=== PATIENT | female | born 1940 | race Caucasian/White ===

== ENCOUNTER → 2017-09-01 | Outpatient (CLI) | payer OTHER | LOC: BMCIMAGING 13:00 | PROVIDERS: ATTEND Emergency Medicine | DX: M79.662 Pain in left lower leg (principal) ==

== ENCOUNTER 2017-09-03 08:39 | Emergency (ER) | payer OTHER ==
[2017-09-03 08:47] VITALS: BP 119/68; PULSE 73; RESP 18; TEMP 98.4; O2SAT 95
--- NOTE | 2017-09-03 09:18 | EDPHY ---
H & P Time Seen by Provider: 09/03/17 08:52 HPI/ROS: CHIEF COMPLAINT: Left ankle pain HISTORY OF PRESENT ILLNESS: 68 a woman has history of osteoarthritis presents with pain in her left ankle. She has had left ankle pain for 4 years and then saw her bar tacker about ex weeks ago and was given a brace which helped her. For the last 4 days has had pain radiating from her proximal foot up to the mid calf which feels different than her typical ankle pain and is worse brace. She also developed a rash on the side of her wood but does not remember scratching herself injuring herself. REVIEW OF SYSTEMS: No chest pain or shortness of breath or fevers PAST MEDICAL HISTORY: Right total arthroplasty, hypertension, ulcer disease, osteoarthritis. Previous treated 01/17/2014 personally reviewed Social history: Here with her daughter General Appearance: Alert and conversant, cooperative. Normal range of motion of the left knee ankle and foot. No bony tenderness on the tibia fibula or malleolus or the foot. Compartments are soft and normal motor sensory and capillary refill. No lymphangitis or fluctuance or clinical evidence cellulitis or redness. They are 4 vesicular lesions on the lateral mid wood, and 1 or 2 on her ankle medial to the lateral malleolus. Emergency Department course/MDM: Possible shingles. She is a bit hyperesthetic there. I think that septic joint or fracture or compartment syndrome or cellulitis are all unlikely. Treatment with antivirals and steroids discussed and consented. She is a pain medication prescription from her visit 2 days ago at urgent care when she had a negative ultrasound, she is encouraged to fill it. Negative left ankle x-ray personally interpreted. Smoking Status: Never smoked Constitutional: Initial Vital Signs Temperature (C) 36.9 C 09/03/17 08:40 Heart Rate 73 09/03/17 08:40 Respiratory Rate 18 09/03/17 08:40 Blood Pressure 119/68 09/03/17 08:40 O2 Sat (%) 95 09/03/17 08:40 O2 Delivery Mode Room Air Allergies/Adverse Reactions: morphine Allergy (Unknown, Unverified 09/03/17 08:47) Home Medications: Medication Instructions Recorded Aspirin [Aspirin 81mg (*)] 81 mg PO DAILY 01/18/14 Diltiazem HCl [Diltiazem 12Hr ER] 60 mg PO DAILY 01/18/14 Losartan/Hydrochlorothiazide 1 each PO DAILY 01/18/14 [Losartan-Hctz 50-12.5 mg Tab] amLODIPine BESYLATE [Norvasc 5 mg 5 mg PO HS 01/18/14 (*)] Aspirin EC [Aspirin EC 81 mg (*)] 81 mg PO DAILY 09/03/17 Atorvastatin Calcium [Lipitor 40 40 mg PO 09/03/17 mg (*)] Famciclovir [Famvir 250 MG (*)] 500 mg PO TID 7 Days tab 09/03/17 Memantine HCl [Namenda 5 mg (*)] 5 mg PO BID 09/03/17 predniSONE 10 mg PO AD #15 tab 09/03/17 MDM/Departure - MDM Imaging Results: Imaging Impressions Ankle X-Ray 09/03/17 09:13 Impression: Negative for fracture. - Depart Disposition: Home, Routine, Self-Care Clinical Impression: Left ankle pain Qualifiers: Chronicity: acute Qualified Code(s): M25.572 - Pain in left ankle and joints of left foot Shingles Qualifiers: Herpes zoster complications: without complications Qualified Code(s): B02.9 - Zoster without complications Condition: Good Instructions: Shingles (ED) Additional Instructions: Keep the area covered where there is a rash until it resolves. You need to avoid being around anyone with a compromised immune system or who is until the rash is gone. Prescriptions: Famciclovir [Famvir 250 MG (*)] 500 mg PO TID 7 Days tab predniSONE 10 mg PO AD #15 tab Referrals: Shelia Manriquez MD [Medical Doctor] - As per Instructions
== END 2017-09-03 10:00 | disposition home or self-care (01) ==
DX: M25.572 Pain in left ankle and joints of left foot (principal); B02.9 Zoster without complications; I10 Essential (primary) hypertension; Z79.82 Long term (current) use of aspirin

== ENCOUNTER 2018-06-30 21:08 | Observation (INO) | payer OTHER ==
--- NOTE | 2018-06-30 21:42 | EDPHY ---
H & P Stated Complaint: sz Time Seen by Provider: 06/30/18 21:52 HPI/ROS: CHIEF COMPLAINT: Seizure HISTORY OF PRESENT ILLNESS: The patient is a 77 y/o female with dementia and history of recent spinal fusion one month ago who arrives with her family members for evaluation after a witnessed seizure at home tonight. She is currently confused and says, "I don't know what you're all talking about" when I ask her who her family members are at the bedside. Son reports this is not baseline and that her dementia has been worse than usual all day in terms of lack of focus and confusion. History comes primarily from her son and daughter at bedside. She has a remote history of epilepsy, which she stopped taking medication for in the and has had no seizures since. She had an L4/L5 fusion on 05/30/18 and has been recovering well. Her left-sided sciatica improved after the surgery, but she has been complaining of right leg pain daily , which her son reports is a longstanding issue. She is currently living with her son through recovery and tonight after dinner he was upstairs and "heard this high-pitched scream and it went on for 10-15 seconds." He ran downstairs to find her sitting in a chair "stiff as a board" and then describes tonic- clonic seizure activity. She currently complains of right leg pain, but otherwise denies complaints. She and her family deny urinary symptoms. She is prescribed tramadol and gabapentin for pain. REVIEW OF SYSTEMS: A ten system review of systems was performed and is negative with the exception of the items mentioned in the HPI. Past medical history: Prior diagnosis of epilepsy stopped medications in ; dementia; hypertension; depression; neuropathy; hearing loss Past surgical history: L4/L5 spinal fusion by Dr. Malave; right knee replacement 10 years ago Family history: Noncontributory Social history: Son at bedside lives with the patient. Lives in [place]. Retired. General Appearance: Alert. Vital signs reviewed. Eyes: Pupils equal and round, no conjunctival injection, no discharge. Anicteric. ENT, Mouth: Mucous membranes are moist, no oropharyngeal erythema or edema. No tongue injury. Neck: No lymphadenopathy, supple. Respiratory: Lungs are clear to auscultation; no wheezes, rales, or rhonchi. Cardiovascular: Regular rate and rhythm; no murmur, rub, or gallop. Gastrointestinal: Abdomen is soft and nontender, no masses or organomegaly. Skin: Warm and dry, no rashes on exposed skin, normal color. Back: Nontender to palpation over the thoracolumbar spine. No CVAT. Extremities: No lower extremity edema, no calf tenderness or swelling. Neurological: Alert and disoriented--oriented to person only. Moving all four extremities easily and equally. PERRL. EOMI. Tongue midline. Facial expressions symmetric. Shoulder shrug 5/5. Hearing intact to finger rub. Strength 4+/5 all major motor groups. Sensation intact to LT all four extremities. Psychiatric: Normal affect. - Personal History Current Tetanus/Diphtheria Vaccine: Unsure Tetanus Vaccine Date: unsure - Medical/Surgical History Hx Asthma: No Hx Chronic Respiratory Disease: No Hx Diabetes: No Hx Cardiac Disease: No Hx Renal Disease: No Hx Cirrhosis: No Hx Alcoholism: No Hx HIV/AIDS: No Hx Splenectomy or Spleen Trauma: No Other PMH: "epilepsy" untreated "all my life". chronic pain. dementia - Social History Smoking Status: Never smoked Constitutional: Initial Vital Signs Temperature (C) 36.8 C 06/30/18 21:10 Heart Rate 80 06/30/18 21:10 Respiratory Rate 18 06/30/18 21:10 Blood Pressure 158/76 H 06/30/18 21:10 O2 Sat (%) 93 06/30/18 21:10 O2 Delivery Mode Room Air Allergies/Adverse Reactions: morphine Allergy (Unknown, Unverified 07/01/18 11:41) Vomiting alendronate sodium Allergy (Verified 07/01/18 11:41) Vomiting Home Medications: Medication Instructions Recorded Acetaminophen [Tylenol 325mg (*)] 650 mg PO Q4H PRN 07/01/18 Atorvastatin Calcium [Lipitor 40 40 mg PO HS 07/01/18 mg (*)] Bisacodyl [Dulcolax] 10 mg RC DAILY PRN 07/01/18 Escitalopram Oxalate [Lexapro 10 10 mg PO DAILY 07/01/18 MG] Gabapentin [Neurontin 300 MG (*)] 600 mg PO TID #90 cap 07/01/18 Losartan/Hctz 50/12.5 [Hyzaar 1 tab PO DAILY 07/01/18 50/12.5MG (*)] Memantine HCl [Namenda 5 mg (*)] 10 mg PO BID 07/01/18 Polyethylene Glycol 3350 [Miralax 17 gm PO DAILY 07/01/18 17 gm (*)] Rivastigmine [Exelon 4.6mg/24 1 each TD DAILY 07/01/18 hours] Sennosides/Docusate Sodium 1 each PO BID 07/01/18 [Senna-S Tablet] Tizanidine HCl 4 mg PO TID 07/01/18 amLODIPine BESYLATE [Norvasc 5 mg 5 mg PO DAILY16 07/01/18 (*)] Medical Decision Making - Diagnostics Imaging: Discussed imaging studies w/ call or contact centre manager Radiologist, I viewed and interpreted images myself ED Course/Re-evaluation: This is a 77 y/o female with dementia and recent spinal fusion who presents confused after a witnessed seizure tonight. She has h/o dementia. She is disoriented worse than baseline per son and is unable to answer most questions on assessment. She complains of right leg pain, which is a chronic issue according to her son. Description from son is consistent with seizure. No obvious cause by history, aside from previous history of seizure disorder. However, she is taking tramadol for pain, which could be the culpril Plan for IV, labs, UA, head CT. Head CT shows atrophy, no hemorrhage or acute findings. No seizure activity in ED. She received dose of IV Keppra. She is being admitted for further evaluation and treatment as needed. Seizure precautions in place. Differential Diagnosis: I considered ddx of seizure including but not limited to medications, seizure disorder, electrolyte abnormality, CVA/intracranial mass, intoxicants. - Data Points Laboratory Results: Laboratory Results 06/30/18 21:00 06/30/18 21:00 Medications Given: Discontinued Medications Acetaminophen (Tylenol) 650 mg PO Q4HRS PRN PRN Reason: Pain, Mild/Fever, Can Take PO Stop: 12/28/18 00:29 Last Admin: 07/01/18 10:40 Dose: 650 mg Amlodipine Besylate (Norvasc) 5 mg PO DAILY16 [facility] Stop: 12/28/18 15:59 Last Admin: 07/01/18 16:50 Dose: 5 mg Enoxaparin Sodium (Lovenox) 40 mg SC DAILY [facility] Stop: 12/28/18 08:59 Last Admin: 07/01/18 08:49 Dose: 40 mg Escitalopram Oxalate (Lexapro) 10 mg PO DAILY [facility] Stop: 12/28/18 11:44 Last Admin: 07/01/18 13:33 Dose: 10 mg Gabapentin (Neurontin) 600 mg PO TID [facility] Stop: 12/28/18 15:59 Last Admin: 07/01/18 16:53 Dose: 600 mg Levetiracetam (Keppra (Premix)) 100 mls @ 400 mls/hr IV EDNOW ONE Stop: 06/30/18 23:30 Last Admin: 06/30/18 23:35 Dose: 100 mls Memantine (Namenda) 10 mg PO BID [facility] Stop: 12/28/18 11:44 Last Admin: 07/01/18 14:03 Dose: 10 mg Polyethylene Glycol (Miralax) 17 gm PO DAILY [facility] Stop: 12/28/18 11:44 Last Admin: 07/01/18 13:33 Dose: 17 gm Potassium Chloride (Potassium Chloride Oral Liquid) 20 meq PO ONCE ONE Stop: 07/01/18 00:34 Last Admin: 07/01/18 04:46 Dose: Not Given Departure - Departure Disposition: [facility] Clinical Impression: Seizure disorder Condition: Good Report Scribed for: Jocelin Esparza Report Scribed by: Kathi Galvin Date of Report: 06/30/18 Time of Report: 22:49 Physician Review and Approval Statement: 06/30/18 21:42 Portions of this note were transcribed by the medical claims manager. I, Dr. Jocelin Esparza, personally performed the history, physical exam, and medical decision- making; and confirmed the accuracy of the information in the transcribed note.
[2018-06-30 22:16] LABS: PLATELET COUNT 339 10^3/uL (150-400)
[2018-06-30] MEDS ORDERED: levETIRAcetam 500MG/NACL 100 ML IV ONE (23:16)
[2018-07-01] MEDS ORDERED: ACETAMINOPHEN 325 MG TAB PO PRN (00:30)
[2018-07-01] MEDS ORDERED: NS 1,000 ML IV SCH (00:30)
[2018-07-01] MEDS ORDERED: LORazepam 2 MG/ML INJ IVP PRN (00:30)
[2018-07-01] MEDS ORDERED: ONDANSETRON DISINTEGRATING 4 MG TAB PO PRN (00:30)
[2018-07-01] MEDS ORDERED: ONDANSETRON 4 MG/2 ML VIAL IVP PRN (00:30)
[2018-07-01] MEDS ORDERED: POTASSIUM CL 20 MEQ/15 ML UDCUP PO ONE (00:33)
[2018-07-01 05:40] LABS: PLATELET COUNT 286 10^3/uL (150-400)
--- NOTE | 2018-07-01 05:43 | GHP ---
DATE OF ADMISSION: 06/30/2018 SOURCE: Patient is not able to provide a significant amount of history. She does have an underlying baseline of dementia and is not normally oriented per review of chart. Currently, she does appear i ncreasingly confused and is only oriented to person. Family has left for home for the evening. EMR was reviewed and case discussed with ED provider. CHIEF COMPLAINT: Seizure. HISTORY OF PRESENT ILLNESS: This is a pleasant 77-year-old female with a past medical history signif icant for dementia, chronic pain, history of seizure disorder that has not required any treatment sin ce , HTN, HLD, depression, hearing deficit, who presents to the emergency department today after her son found the patient to be sitting in the chair and stiff as a board. Patient apparently did s cream out right before her seizure. She subsequently had tonic-clonic activity and afterwards was mo re confused than normal. Per review of chart, patient apparently had been having some increased conf usion throughout the day before her seizure episode. She had been repeating some of her words and saravia d not been answering questions appropriately. REVIEW OF SYSTEMS: Quite limited secondary to patient's dementia, but she does deny remainder of rev iew of systems 10-point. ALLERGIES: Morphine listed. HOME MEDICATIONS: As per EMR. Tramadol, senna, rivastigmine, MiraLAX, gabapentin, escitalopram, Dul colax, amlodipine, memantine, losartan HCTZ, atorvastatin. PAST MEDICAL HISTORY: Significant for dementia, reported history of seizure disorder which has not r equired any treatment since , HTN, HLD, chronic pain, depression, hearing deficit, neuropathy. PAST SURGICAL HISTORY: Significant for spinal fusion 05/18/2018 on L4-5. Right TKA more than 10 yea rs ago. FAMILY HISTORY: Son with seizure disorder by report. SOCIAL HISTORY: Patient lives with her son. She is retired. She does not smoke, drink, or utilize any illicit drugs. She is dependent for assistance with ADLs. CODE STATUS: Unable to verify with the family at this time. PHYSICAL EXAMINATION: VITAL SIGNS: Upon arrival to the emergency department, blood pressure 158/76, heart rate 80, respiratory rate 18, O2 saturation 93% on room air, temperature 36.8. Current vitals available: Blood pressure 146/70, heart rate 64, respiratory rate 15, O2 saturation 93% on room air with temperature 36.8. GENERAL: No acute distress. Pleasant, elderly, frail-appearing female is raman sawyer quietly in bed. She does appear quite fatigued. She wakes easily to name. She remains a littl e bit somnolent and tries to answer questions but for the most part is unable to provide appropriate answers and often times states she does not know. SKIN: No apparent rashes, sores on extremities. ENT: Mucous membranes appear slightly dry. No nasal discharge. EYES: Extraocular muscles are huyen sly intact, but patient does have some limitations. She is a little bit sleepy, requires some prompt ing to open her eyelids all the way. Her pupils are symmetric, but with decreased reactivity to ligh t bilaterally. No scleral icterus, conjunctival injection. NECK: Supple, trachea midline. CV: Re gular rate and rhythm. Slightly bradycardic without any murmurs, rubs, or gallops appreciated. RESP IRATORY: Unlabored breathing. Lungs are clear to auscultation bilaterally. No wheezes, rales, or r honchi appreciated. ABDOMEN: Positive bowel sounds. Soft, nontender to palpation. No rebound, gua rding, or masses appreciated. : No suprapubic tenderness to palpation. No Ovalle catheter in plac e. MUSCULOSKELETAL: Patient with generalized deconditioning and weakness. She is able to move all of her extremities while lying in bed, however. NEURO: Grossly nonfocal. No facial drooping. Sens ation intact to lower extremities. PSYCH: Patient is not agitated, but she is confused as per HPI. She is not oriented to place or time. When asked more generalized questions regarding her orientati on, she states she is not able to recall. She is not agitated. She is pleasant and cooperative othe rwise. LABORATORY STUDIES: WBC 8.44, H and H is 11.7 and 35.9, MCV 92.8, platelet count is 399, no bands. Sodium is 138, potassium 3.6, chloride is 100, CO2 is 23, anion gap 15, BUN 14, creatinine 0.9, GFR o f 60, glucose is 154, calcium 10.5, magnesium 1.9. UA specific gravity 1.011 with a PT of 7.0, other cheng negative. CT head showing mild atrophy. No acute hemorrhage, hydrocephalus or mass-effect cerebrovascular athe rosclerosis. No definite acute infarct. Moderate microvascular ischemic gliosis. Consider MRI if c ontinued clinical concern. ASSESSMENT AND PLAN: A very pleasant 77-year-old female with history of dementia, seizure disorders, HTN, HLD, depression, who presents to the emergency department following a witnessed seizure episode . Patient has subsequently been confused. She does have underlying dementia with baseline confusion and disorientation. 1. Seizure. Differential including primary seizure disorder versus cerebrovascular accident versus other metabolic issues ongoing; however, patient's lab work is normal. She has not been on any antie pileptics in many years, since 1980s per review of chart. She does not have any focal deficits. Per review of chart, it appears that patient may be almost close to her baseline as she is not normally oriented to place or time. We will consult Neurology for additional recommendations. Consider MRI p ending their assessment and recommendations. Patient is on seizure precautions. Monitoring electrol ytes replacing as appropriate. 2. Acute on chronic confusion with underlying dementia, possibly secondary to a postictal state vers us progression of disease versus a slightly infectious or metabolic encephalopathy. Patient is afebr ile. She does not have a leukocytosis. Laboratory studies are overall fairly normal. She has a min imal rise in calcium, but suspect this could be due to dehydration as patient does clinically appear dry. She will receive some IV fluids at this time. 3. Dementia. Resume patient's home medications, memantine and rivastigmine when medication reconcil iation is completed. 4. Benign essential hypertension. Plan to resume patient's home losartan HCTZ and monitor blood pre ssures. 5. Hyperlipidemia. Resume patient's statin. 6. History of chronic pain. Currently minimize use of sedatives given patient's persistent acute on chronic confusion. Tylenol p.r.n. for now. 7. History of depression. Continue patient's escitalopram. 8. Hearing deficit. 9. Neuropathy. Continue patient's gabapentin when mentation improved. 10. Fluid: Electrolyte, nutrition IV fluids as noted above. Electrolyte replacement including pota ssium, monitoring Mag. 11. Diet: Advance as tolerated to cardiac. 12. Prophylaxis: Sequential compression devices. Lovenox. 13. Code status: Will need to verify in the morning as per day team when family is available for re view. DISPOSITION: Patient admitted to observation status on the neuro ortho floor for close monitoring an d seizure precautions. /[id number]/MODL
[2018-07-01] MEDS ORDERED: ENOXAPARIN 40 MG/0.4 ML SYR SC SCH (09:00)
--- NOTE | 2018-07-01 09:29 | HOSPPROG ---
Hospitalist Progress Note Assessment/Plan: Darling Dominguez is a 77 y/o woman w hx of dementia, seizure disorder and htn who presented to the ER with a witnessed seizure. Today is my first encounter, chart reviewed. *Seizure -given keppra in ER -hold tramadol (decreases seizure threshold) -patient has hx of Epilepsy, stopped medications many years ago *acute on chronic confusion -suspect the seizure exacerbated her confusion *Dementia -on multiple medications for this *HTN -home lmed resumed *Plan: neurology to see today, [facility], dc this afternoon Subjective: Darling has no c/o pain. Objective: Vital Signs Temp Pulse Resp BP Pulse Ox 36.8 C 62 21 H 137/63 H 94 07/01/18 08:55 07/01/18 08:55 07/01/18 08:55 07/01/18 08:55 07/01/18 08:55 Laboratory Results 07/01/18 04:28 07/01/18 04:28 06/30/18 07/01/18 07/02/18 05:59 05:59 04:59 Intake Total 50 Output Total 1 Balance 50 -1 - Physical Exam Constitutional: no apparent distress, not in pain, other (slender) Eyes: PERRL Ears, Nose, Mouth, Throat: hearing normal Cardiovascular: regular rate and rhythym Respiratory: no respiratory distress Gastrointestinal: normoactive bowel sounds Skin: warm Musculoskeletal: generalized weakness Neurologic: sensation intact bilaterally, No weakness, No facial droop Psychiatric: interacting appropriately, poor memory (oriented to herself and her daughter, not oriented to place, time or situation) ICD10 Worksheet Patient Problems: Problems Problem Status Onset Seizure disorder Acute Chest pain Acute
--- NOTE | 2018-07-01 10:37 | ASMTCMCOM ---
CM Note CM Note Notes: Patient admitted after son witnessed he3r having a tonic clonic seizure at home. Per son, she has a lifelong hx of seizure d/o but has not been medicated for this (and has been asymptomatic) for decades. He reports that her dementia seems to be worsening. She is also s/p spinal surgery earlier this month. PT/OT/DIRECTOR MONEY ordered. Neuro consult pending. Patient lives with her son and has a daughter locally as well. Case Management will follow. Date Signed: 07/01/2018 10:37 AM Electronically Signed By:Davina Zambrano RN
[2018-07-01] MEDS ORDERED: BISACODYL 10 MG SUPP PR PRN (11:38)
[2018-07-01] MEDS ORDERED: POLYETHYLENE GLYCOL 3350 17 GM PKT PO SCH (11:45)
[2018-07-01] MEDS ORDERED: ESCITALOPRAM OXALATE 10 MG TAB PO SCH (11:45)
[2018-07-01] MEDS ORDERED: MEMANTINE HCL 5 MG TAB PO SCH (11:45)
--- NOTE | 2018-07-01 14:21 | NEUROPROG ---
Assessment: [id number] - Neurology Consult: - CC: Seizure - HPI: Pt with long-standing dementia and a history of a seizure disorder (none since ) had a witnessed generalized tonic-clonic seizure at home on 06/30/18. Pt brought to [facility] and admitted. Her med list did list tramadol which can increase seizure risk. Her son did report her dementia has significantly affected her cognition so the patient cannot provide meaningful history. I initially saw the patient on 07/01/18. Her daughter was at bedside. Her daughter felt she was nearly back at her baseline but that the patient had not slept well. Neurologic exam nonfocal but did show cognitive issues consistent with dementia. I told them to stop tramadol and increase home dose of gabapentin 400 mg TID to 600 mg TID for seizure prevention and pain control. She can f/u with her outpatient neurologist, Dr. Mariscal, to ensure she tolerates the med changes. Pt and her daughter declined brain MRI wwo. - PMHx: dementia, seizure d/o, HTN, HLD, chronic pain, depression, hearing deficit , neuropathy PSHx: spinal fusion 2018, R TKA - SHx: lives with her son FHx: son w/seizures - ROS: Pt denied acute fever, total vision loss, active severe chest pain, respiratory failure, total body severe rash, total bowel/bladder incontinence, psychosis, active seizures, or active bleeding - O: VS reviewed General: Alert Eyes: Fundoscopic exam not able to visualize optic disks CV: Heart RRR, no murmur, no carotid bruit Lungs: Clear to auscultation bilaterally, no rhonchi or rales Neuro: - Mental: . Oriented x person but not place/date (baseline per her daughter) . concentration appears normal . speech fluency/comprehension normal . memory appears reduced . fund of knowledge appear intact - Cranial Nerves: . II: PERRL, VFFTC . III/IV/: EOMI, no nystagmus, normal smooth pursuits, no Ptosis . V: facial sensation intact to LT . VII: face symmetric to eye closure and smile . VIII: hearing intact to conversation . IX/X: uvula raises symmetrically . XI: SCM 5/5 B/L strength . XII: tongue protrudes midline w/nl strength - Motor: . Tone: normal tone in all 4 extremity . Strength: no pronator drift, strength 5/5 throughout (B/L delt, bic, tri, hand microsoft dynamics manager architect, hf/he, df/pf) - Reflexes: B/L bic 2/4 - Sensory: all 4 extremity intact to light touch - Coord: BERT wnl, [id number] wnl - Gait: deferred - Labs: 07/01/18- CBC Hct 30.8L, Chem Anion gap 5L, TSH wnl, UA wnl - Rads: 06/30/18- Head CT: no acute changes (I personally visualized the images on ) - Assessment: 1. Seizure Disorder: Present since with last seizure 06/30/18; head CT on 06/30/18 showed no acute changes or old brain lesions to explain seizure; likely her known dementia is causing seizures - 2. Dementia: head CT on 06/30/18 showed no acute changes but did show atrophy; pt on memantine and rivastigmine - Plan: - Stop tramadol as it increases seizure risk - Increase gabapentin 400 mg TID to 600 mg TID for seizure control and pain control - Seizure precautions and driving restrictions for 90 days from last seizure ( pt does not drive at baseline due to dementia) - Pt and her daughter declined brain MRI wwo - F/U with outpatient neurologist, Dr. Mariscal, who follows the patient Objective: Vital Signs Temp Pulse Resp BP Pulse Ox 36.8 C 70 19 117/57 L 90 L 07/01/18 11:37 07/01/18 11:37 07/01/18 11:37 07/01/18 11:37 07/01/18 11:37 Laboratory Results 07/01/18 04:28 07/01/18 04:28 06/30/18 07/01/18 07/02/18 05:59 05:59 04:59 Intake Total 50 Output Total 301 Balance 50 -301 Allergies/Adverse Reactions: morphine Allergy (Unknown, Unverified 07/01/18 11:41) Vomiting alendronate sodium Allergy (Verified 07/01/18 11:41) Vomiting
--- NOTE | 2018-07-01 15:13 | PDIAF ---
- Diagnosis Diagnosis: seizure - Medication Management Discharge Medications: electronically signed and located in the Home Medication List. - Orders Services needed: Home Care, Physical Therapy, Occupational Therapy, Speech Language Pathologist Home Care Face to Face: I certify that this patient was under my care and that I had the required [id number] encounter meeting the encounter requirements on the discharge day. My findings support the fact that the patient is homebound as defined in Home Care Face to Face Continued: CMS Chapter 7 Medicare Benefits Manual 30.1.1 , The condition of the patient is such that there exists a normal inability to leave home and consequently, leaving home would require a considerable and taxing effort. Diet Recommendation: no restrictions on diet Diet Texture: Regular Texture Diet Additional Instructions: stop tramadol, increases risk of seizure gabapentin dose has been increased, this should help with your pain and also help treat seizures f/u with your PCP in one to two week your script for Gabapentin was sent to [facility] home care will be ordered. follow up with Dr Mariscal - Follow Up Care Current Providers and Referrals: Patient,NotPresent [Primary Care Provider] - As per Instructions
--- NOTE | 2018-07-01 15:21 | ASMTDCNOTE ---
Case Management Discharge Discharge Order Complete? 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 I sent resumption of care orders. Patient's son will transport home. Date Signed: 07/01/2018 03:20 PM Electronically Signed By:Davina Zambrano RN
--- NOTE | 2018-07-01 15:22 | ASMTLACE ---
LACE Length of stay for Answers: Less than 1 day current admission Acuity / Level of Answers: No Care: Did the patient have an inpatient admission? Comorbidities - select Answers: Coronary Artery Disease all that apply Dementia Other Notes: seizure d/o # of Emergency department Answers: 1-2 visits in the last 6 months Score: 7 Date Signed: 07/01/2018 03:21 PM Electronically Signed By:Davina Zambrano RN
[2018-07-01] MEDS ORDERED: amLODIPine BESYLATE 5 MG TAB PO SCH (16:00)
[2018-07-01] MEDS ORDERED: GABAPENTIN 300 MG CAP PO SCH (16:00)
[2018-07-01] MEDS ORDERED: GABAPENTIN 400 MG CAP PO SCH (16:00)
[2018-07-01 16:54] VITALS: BP 116/67
[2018-07-01] MEDS ORDERED: ATORVASTATIN CALCIUM 40 MG TAB PO SCH (21:00)
[2018-07-01] MEDS ORDERED: SENNOSIDES/DOCUSATE SODIUM TAB PO SCH (21:00)
--- NOTE | 2018-07-02 03:33 | GDS ---
DISCHARGE DIAGNOSES: 1. Seizure. 2. Acute on chronic confusion. 3. Dementia. 4. Hypertension. CONSULTATION: Dr. Ez Marinelli. BRIEF HISTORY: The patient is a 77-year-old woman with a long history of dementia and seizure disord er. She has not had any seizures since the 1980s. She had a witnessed generalized tonic-clonic seiz ure. She was brought to [facility] for further evaluation. It was recommended that sh e stop the tramadol, because this lower seizure threshold. She also has ongoing cognitive issues con sistent with dementia. Her gabapentin dose will be raised to 600 mg three times daily, and she will follow up with Dr. Mariscal in the outpatient setting. HOSPITAL COURSE PER PROBLEM: 1. Seizure. She has history of epilepsy. Gabapentin dose has been increased. Further followup wit h her neurologist. 2. Acute on chronic confusion. I suspect the seizure exacerbated her confusion. She is much better this afternoon. 3. Dementia. She is on medications for this. 4. Hypertension. Home medications have been resumed. DISCHARGE CONDITION: Stable. Blood pressure is 137/63, O2 saturations on room air 94%, respiratory rate is 18, pulse is 62, temperature 36.8 Celsius. DISCHARGE MEDICATIONS: Please see the EMR. DISCHARGE INSTRUCTIONS: 1. To follow up with Dr. Mariscal. 2. To stop the tramadol. 3. She will get home care to follow up as far as Speech Therapy, PT, and OT. Copy requested to: Dr. Mariscal /[id number]/MODL
[2018-07-02] MEDS ORDERED: LOSARTAN/HCTZ 50/12.5 1 TAB PO SCH (09:00)
[2018-07-02] MEDS ORDERED: Rivastigmine [Exelon 4.6mg/24 Hours] 1 EACH TD SCH (09:00)
== END 2018-07-01 17:15 | disposition home health service (06) ==
LOC: EDUNIT# → F3N 07-01 01:14
PROVIDERS: ADMIT Family Medicine; ATTEND Student in an Organized Health Care Education/Training Program
DX: G40.309 Generalized idiopathic epilepsy and epileptic syndromes, not intractable, without status epilepticus (principal); R41.0 Disorientation, unspecified; F03.90 Unspecified dementia, unspecified severity, without behavioral disturbance, psychotic disturbance, mood disturbance, and anxiety; I10 Essential (primary) hypertension; F32.9 Major depressive disorder, single episode, unspecified; G89.29 Other chronic pain; E78.5 Hyperlipidemia, unspecified; H91.90 Unspecified hearing loss, unspecified ear; G62.9 Polyneuropathy, unspecified; Z96.651 Presence of right artificial knee joint; Z98.1 Arthrodesis status
CPT/HCPCS: 70450; 96372; 96374; 97165; 97535; 99285; G0378; J1650; J1953

== ENCOUNTER 2018-08-16 16:15 | Emergency (ER) | payer OTHER ==
--- NOTE | 2018-08-16 16:22 | EDPHY ---
H & P Time Seen by Provider: 08/16/18 16:20 HPI/ROS: CHIEF COMPLAINT: Seizure HISTORY OF PRESENT ILLNESS: The patient is a 77-year-old female presents emergency department via EMS after having seizure. Patient has a remote history of epilepsy. She had seizures in the . She had a subsequent seizure last June. She was admitted the hospital had a workup which was reported as negative. She is not on antiseizure medication. Today she had a witnessed seizure by her . This was a full tonic-clonic seizure per report. Patient was postictal appearing per EMS. Patient's mental status has improved while she has been in their care. Glucose was 79. REVIEW OF SYSTEMS: 10 systems were reveiwed and are negative with the exception of the elements mentioned in the history of present illness. Past Medical/Surgical History: Includes epilepsy, dementia, hypertension, chronic pain, depression, hearing deficit, neuropathy Past surgical history: Spinal fusion, orthopedic surgery Social history: The patient lives with her son Smoking Status: Never smoked Physical Exam: Vitals noted GENERAL: No acute distress, alert. HEENT: Eyes normal to inspection, normal pharynx, no signs of dehydration. NECK: Normal, supple. RESPIRATORY: Clear to auscultation bilaterally, no rales, rhonchi or wheezing. CVS: Regular rate and rhythm, no rubs, murmurs, or gallops. ABDOMEN: Soft, nontender, nondistended, no organomegaly. BACK: Normal to inspection, no CVA tenderness. SKIN: Normal color, no rash, warm, dry. No pallor. EXTREMITIES: No pedal edema, no calf tenderness, no Homans sign or cords, no joint swelling. NEURO/PSYCH: Higher functions: Alert and Oriented x1. Normal speech and cognition. Flat affect. Cranial nerves: Normal as tested. Cerebellar: Normal as tested. Peripheral exam: Normal motor exam. Normal sensation. Constitutional: Initial Vital Signs Temperature (C) 36.4 C 08/16/18 16:22 Heart Rate 59 L 08/16/18 16:22 Respiratory Rate 13 08/16/18 16:22 Blood Pressure 133/64 H 08/16/18 16:22 O2 Sat (%) 97 08/16/18 16:22 O2 Delivery Mode Room Air Allergies/Adverse Reactions: morphine Allergy (Unknown, Unverified 08/16/18 16:26) Vomiting alendronate sodium Allergy (Verified 08/16/18 16:26) Vomiting Home Medications: Medication Instructions Recorded Acetaminophen [Tylenol 325mg (*)] 650 mg PO Q4H PRN 07/01/18 Atorvastatin Calcium [Lipitor 40 40 mg PO HS 07/01/18 mg (*)] Bisacodyl [Dulcolax] 10 mg RC DAILY PRN 07/01/18 Escitalopram Oxalate [Lexapro 10 10 mg PO DAILY 07/01/18 MG] Gabapentin [Neurontin 300 MG (*)] 600 mg PO TID #90 cap 07/01/18 Losartan/Hctz 50/12.5 [Hyzaar 1 tab PO DAILY 07/01/18 50/12.5MG (*)] Memantine HCl [Namenda 5 mg (*)] 10 mg PO BID 07/01/18 Polyethylene Glycol 3350 [Miralax 17 gm PO DAILY 07/01/18 17 gm (*)] Rivastigmine [Exelon 4.6mg/24 1 each TD DAILY 07/01/18 hours] Sennosides/Docusate Sodium 1 each PO BID 07/01/18 [Senna-S Tablet] Tizanidine HCl 4 mg PO TID 07/01/18 amLODIPine BESYLATE [Norvasc 5 mg 5 mg PO DAILY16 07/01/18 (*)] Medical Decision Making - Diagnostics Imaging Results: Imaging Impressions Head CT 08/16/18 16:26 Impression: Stable negative noncontrast CT of the brain. Results called to Dr. Monserrat More at 5:20 PM at the time of the interpretation. ED Course/Re-evaluation: I met EMS on arrival. I took report from the silk screen repairer. Per report the patient 's is in route. The patient has no complaints at this time. She does have a slightly flattened affect. I reviewed the patient's medical record. Specifically I reviewed patient's admission in June 2018. CT at that time showed mild atrophy with no acute hemorrhage or other abnormality. At time of discharge her tramadol was discontinued and her gabapentin was increased. EKG shows normal sinus rhythm, normal rate, normal axis, normal intervals. There are no ST or T-wave abnormalities. EKG is normal as interpreted by me. Patient's CBC is unremarkable. Troponin is negative. Head CT: No acute disease noted. Please refer the dictated report by Dr. Alvarez. On recheck the patient was able to eat a banana. She ambulated. Patricia we states the patient is back to normal. Patient was given warnings. She is given follow -up with Neurology. Differential Diagnosis: My differential includes but is not limited to seizure, postictal state, ischemic CVA, hemorrhagic CVA, dissection, aneurysm, electrolyte abnormality, sugar abnormality, dehydration - Data Points Laboratory Results: Laboratory Results 08/16/18 16:28 08/16/18 16:28 08/16/18 08/16/18 08/16/18 16:33 16:28 16:28 WBC 9.36 10^3/uL 10^3/uL (3.80-9.50) RBC 4.17 10^6/uL L 10^6/uL (4.18-5.33) Hgb 12.5 g/dL L g/dL (12.6-16.3) Hct 39.2 % % (38.0-47.0) MCV 94.0 fL fL (81.5-99.8) MCH 30.0 pg pg (27.9-34.1) MCHC 31.9 g/dL L g/dL (32.4-36.7) RDW 12.6 % % (11.5-15.2) Plt Count 249 10^3/uL 10^3/uL (150-400) MPV 10.3 fL fL (8.7-11.7) Neut % (Auto) 69.6 % % (39.3-74.2) Lymph % (Auto) 21.7 % % (15.0-45.0) [place] % (Auto) 5.7 % % (4.5-13.0) Eos % (Auto) 2.1 % % (0.6-7.6) Baso % (Auto) 0.5 % % (0.3-1.7) Nucleat RBC Rel Count 0.0 % % (0.0-0.2) Absolute Neuts (auto) 6.51 10^3/uL H 10^3/uL (1.70-6.50) Absolute Lymphs (auto) 2.03 10^3/uL 10^3/uL (1.00-3.00) Absolute Monos (auto) 0.53 10^3/uL 10^3/uL (0.30-0.80) Absolute Eos (auto) 0.20 10^3/uL 10^3/uL (0.03-0.40) Absolute Basos (auto) 0.05 10^3/uL 10^3/uL (0.02-0.10) Absolute Nucleated RBC 0.00 10^3/uL 10^3/uL (0-0.01) Immature Gran % 0.4 % % (0.0-1.1) Immature Gran # 0.04 10^3/uL 10^3/uL (0.00-0.10) Sodium 142 mEq/L mEq/L (135-145) Potassium 4.4 mEq/L mEq/L (3.5-5.2) Chloride 105 mEq/L mEq/L (97-110) Carbon Dioxide 25 mEq/l mEq/l (22-31) Anion Gap 12 mEq/L mEq/L (6-14) BUN 30 mg/dL H mg/dL (7-23) Creatinine 1.2 mg/dL H mg/dL (0.6-1.0) Estimated GFR 43 Glucose 142 mg/dL H mg/dL (70-100) Calcium 10.0 mg/dL mg/dL (8.5-10.4) POC Troponin I 0.00 ng/mL ng/mL (0.00-0.08) Medications Given: Discontinued Medications Sodium Chloride (Ns) 250 mls @ 0 mls/hr IV ONCE ONE; Wide Open PRN Reason: Protocol Stop: 08/16/18 16:27 Last Admin: 08/16/18 16:39 Dose: 250 mls Point of Care Test Results: Chemistry 08/16/18 16:33 POC Troponin I 0.00 ng/mL ng/mL (0.00-0.08) Departure - Departure Disposition: Home, Routine, Self-Care Clinical Impression: Seizure Condition: Good Instructions: Epilepsy (ED) Additional Instructions: Return with increasing headache, weakness, numbness, repeat seizures or any other concerns. Call to make an appointment with Neurology. You can see anyone in the practice. Referrals: Jeff Munoz MD [Medical Doctor] - 2-3 days without fail Christiano Goodson MD [Medical Doctor] - As per Instructions
[2018-08-16] MEDS ORDERED: NS 250 ML IV ONE (16:26)
[2018-08-16 16:45] LABS: PLATELET COUNT 249 10^3/uL (150-400)
[2018-08-16 19:02] VITALS: BP 131/63
--- NOTE | 2018-08-16 20:52 | CPEKG ---
Test Reason : OPEN Blood Pressure : / mmHG Vent. Rate : 057 BPM Atrial Rate : 057 BPM P-R Int : 146 ms QRS Dur : 092 ms QT Int : 471 ms P-R-T Axes : 070 011 063 degrees QTc Int : 459 ms Sinus rhythm Probable left atrial enlargement Confirmed by Monserrat More ([id number]) on 08/16/2018 8:51:25 PM Referred By: Confirmed By:Monserrat More
== END 2018-08-16 19:05 | disposition home or self-care (01) ==
LOC: EDUNIT#
DX: G40.909 Epilepsy, unspecified, not intractable, without status epilepticus (principal); E86.9 Volume depletion, unspecified; F03.90 Unspecified dementia, unspecified severity, without behavioral disturbance, psychotic disturbance, mood disturbance, and anxiety; I10 Essential (primary) hypertension; G89.29 Other chronic pain; F32.9 Major depressive disorder, single episode, unspecified; Z98.1 Arthrodesis status
CPT/HCPCS: 84484-ER

== ENCOUNTER → 2018-10-11 | Outpatient (CLI) | payer OTHER ==
--- NOTE | 2018-10-11 14:56 | CPEEG ---
[f rep st] ELECTROENCEPHALOGRAM 4-HOUR VIDEO EEG DATE OF STUDY: 10/11/2018 DATE OF INTERPRETATION: 10/11/2018 INTERPRETATION: This 4-hour video EEG recording is abnormal due to the presence of generalized atypical fqivf-hge-qjrf discharges and generalized eznluvmhi-akb-bfvz discharges. 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 There were no events recorded during the video EEG monitoring session. REPORT: This 4-hour video EEG contains 10 Hz alpha activity over the posterior head regions. The primary feature of this recording was the presence of generalized atypical seqkz-pov-qiwz discharges and generalized polyspike-and- wave discharges at baseline. These generalized epileptiform discharges continued through photic stimulation and hyperventilation. The patient became drowsy and fell into sustained sleep during the recording. During drowsiness and sleep, there was increased activation of generalized atypical spike-and- wave discharges and generalized frdgqlchz-alj-asnf discharges. There were no clinical events recorded during the video EEG monitoring session. /[id number]/MODL MTDD
== END ==
LOC: FCPNEURO 07:45
PROVIDERS: ATTEND Psychiatry & Neurology Neurology
DX: G40.909 Epilepsy, unspecified, not intractable, without status epilepticus (principal)

== ENCOUNTER 2019-02-22 05:02 | Emergency (ER) | payer OTHER | END 2019-02-22 08:20 | disposition home or self-care (01) ==